=== PATIENT | male | born 1950 | race Caucasian/White ===

== ENCOUNTER 2016-10-27 08:37 | Emergency (ER) | payer OTHER | END 2016-10-27 09:37 | disposition home or self-care (01) | DX: S92.411A Displaced fracture of proximal phalanx of right great toe, initial encounter for closed fracture (principal); W10.9XXA Fall (on) (from) unspecified stairs and steps, initial encounter; Z79.82 Long term (current) use of aspirin; I10 Essential (primary) hypertension; E66.3 Overweight ==